=== PATIENT | female | born 1995 ===

== ENCOUNTER → 2017-02-16 | Outpatient (CLI) | payer OTHER ==
[~2017-02-16] MED LIST: ALEVE220 MG PO; AUGMENTIN875 MG PO; AVIANE-28 TABL1 EACH PO; ELAVIL25 MG PO; EXCEDRIN MIGRA1 EACH PO; FLORASTOR250 MG PO; GLUCAGON 1 MG PE1 MG SUB-Q; GLUCOSE4 GM PO; HUMALOG100 UNIT/1 SUB-Q; IMITREX25 MG PO; LEVONOR-ETH ES1 EACH PO; MOTRIN800 MG PO; NORCO 5-325 TA1 EACH PO; TYLENOL325 MG PO; ZYRTEC10 MG PO
== END | disposition disaster alternative care site (69) ==
LOC: GRAD 14:00
DX: Z32.01 Encounter for pregnancy test, result positive (principal); Z3A.15 15 weeks gestation of pregnancy

== ENCOUNTER → 2017-02-17 | Day surgery (SDC) | payer OTHER ==
[~2017-02-17] VITALS: Ht 165.1 cm; Wt 79.5 kg
--- NOTE | ~2017-02-17 | OR ---
PATIENT'S NAME: JAIRON LOCK [facility] AGE: 21 Y [address] ROOM: [place] [address] [place] [facility] [place]: 02/17/2017 OR/Procedure Report DISCHARGE DATE: FAMILY PHYSICIAN: Silvina Chowdhury ATTENDING PHYSICIAN: Alberto Morales SURGEON: Deedee Montes MD BLANKET BINDER: None. DATE OF PROCEDURE: 02/17/2017 PROCEDURE PERFORMED: Dilation and evacuation. PREOPERATIVE DIAGNOSES: 1. Intrauterine at 16 weeks and 2 days with demise. 2. Type 1 diabetes. POSTOPERATIVE DIAGNOSES: 1. Intrauterine at 16 weeks and 2 days with demise. 2. Type 1 diabetes. 3. IV antibiotics with doxycycline 100 mg IV and 200 mg p.o. postprocedure. ESTIMATED BLOOD LOSS: 200 mL. FINDINGS: Enlarged uterus, approximately 15 weeks' size. Appropriate amount of products of conception removed. Normal-appearing endometrial stripe in the uterus on ultrasound at the completion of procedure. Normal-appearing vagina and cervix. SPECIMENS: Products of conception. Specimen sent for genetics and for culture media. COMPLICATIONS: None. DISPOSITION: The patient is stable and sent to PACU. INDICATION FOR THE PROCEDURE: The patient is a 21-year-old, G1, P0, who had just recently found out she was . The patient had been having some vaginal bleeding and presented for evaluation via ultrasound and was found to have a 15-week demise. Biparietal diameter was putting fetus at 15 weeks and 2 days by measurements. The fetus was noted to have some signs of decay and also consistent with demise and low amniotic fluid. The patient was counseled regarding options and desired to proceed with a dilation and evacuation. Please see my previous H and P for discussion about consents. DESCRIPTION OF THE PROCEDURE: The patient was taken back to the operating room, where a time-out was performed to confirm correct patient and correct PATIENT'S NAME: JAIRON LOCK [facility] AGE: 21 Y [address] ROOM: [place] [id number] [place] [facility] [place]: 02/17/2017 OR/Procedure Report DISCHARGE DATE: FAMILY PHYSICIAN: Silvina Chowdhury ATTENDING PHYSICIAN: Alberto Morales procedure. She was prepped and draped in the usual sterile fashion and had been placed under general anesthesia without difficulty. She was in dorsal lithotomy position in [facility]. A weighted speculum was placed and Vniny was used to retract anteriorly. A single-tooth tenaculum was applied to the anterior lip of the cervix. Cervix was progressively dilated to accommodate the larger cervical dilator. The larger suction curette that could be passed easily through the cervix with the 8 mm curette. Suction was tested. The suction curette was advanced to the fundus and suction was applied. Multiple passes were made using gentle pressure. The packing forceps were then used to grasp parts. A sharp curettage was then performed. The patient was still noted to have placental tissue remaining. This process was repeated using all 3 instruments multiple times until a gritty texture to the endometrium was noted. Ultrasound was performed and there was a normal-appearing endometrial stripe and uterus at the completion of the procedure. All instruments were removed from the vagina and tenaculum sites appeared hemostatic. All sponge, and instrument counts were noted be correct x2 at the completion of the procedure and the patient was sent in stable condition to the PACU. MD HAN GALLARDO/patricia /[id number] d: 02/17/172110 t: 02/23/17 0942, OPERATIVE SUMMARY
--- NOTE | ~2017-02-17 | HP ---
PATIENT'S NAME: JAIRON LOCK [facility] AGE: 21 Y [address] ROOM: [place] [address] LOCATION: [facility] – [place] ADMIT DATE: 02/17/2017 History & Physical DISCHARGE DATE: FAMILY PHYSICIAN: Silvina Chowdhury ATTENDING PHYSICIAN: Alberto Morales DATE OF SERVICE: REASON FOR ADMISSION: Second trimester loss. HISTORY OF PRESENT ILLNESS: The patient is a 21-year-old, G1, P0, who was evaluated in the office today for a loss at 15 weeks' gestation. She had a previous ultrasound at [facility] that showed a fetus measuring 15 weeks and 2 days with associated abnormal morphology and low amniotic fluid levels consistent with a demise. The patient states that she had just recently found out she was . Denies any vaginal bleeding or cramping at this time. The patient does have a history significant for type 1 diabetes diagnosed at age 13 for which she wears an insulin pump. She believes her last A1c was somewhere in the range of 8s. She is not sure when her last thyroid was checked. She believed it was sometime in the last year. She was also continued on oral control pills as she was having bleeding and thought that she was having regular cycles. She otherwise denies any complaints or concerns today. PAST MEDICAL HISTORY: As stated above. Significant for type 1 diabetes diagnosed at age 13. PAST SURGICAL HISTORY: Previous tonsillectomy. OBSTETRICAL HISTORY: The patient is a G1, P0. She was taking oral contraceptives. SOCIAL HISTORY: Denies tobacco, alcohol, or drug use. ALLERGIES: DENIES ANY MEDICATION ALLERGIES. MEDICATIONS: Insulin pump. REVIEW OF SYSTEMS: Negative except as noted above. PATIENT'S NAME: JAIRON LOCK [facility] AGE: 21 Y [address] ROOM: [place] [address] LOCATION: [facility] – [place] ADMIT DATE: 02/17/2017 History & Physical DISCHARGE DATE: FAMILY PHYSICIAN: Silvina Chowdhury ATTENDING PHYSICIAN: Alberto Morales PHYSICAL EXAMINATION: GENERAL: She appears awake, alert, and oriented. She does not appear to be in any acute distress. Mood is appropriate. HEART: Regular rate and rhythm. LUNGS: Clear to auscultation bilaterally. ABDOMEN: Nontender with normal bowel sounds. : On vaginal exam, the patient has a closed cervix; 400 mcg of Cytotec was placed. EXTREMITIES: No cyanosis or edema. IMAGING DATA: On review of imaging, again as stated above, the patient had an ultrasound performed here at [facility] that showed a 15 weeks and 2 days fetus with no cardiac activity and signs of macerations consistent with the previous demise. There was noted to be low amniotic fluid levels and labs have not been drawn at this point. ASSESSMENT AND PLAN: This is a 21-year-old, G1, P0, with a demise at 15 weeks and 2 days by ultrasound's measurements. 1. The patient is aware of the options regarding management of this including medical management with induction with Cytotec versus surgical management with dilation and evacuation. She desires to proceed with surgery. As stated above, 400 mcg of Cytotec was placed to help facilitate cervical dilation. She is aware of the risks and benefits of the procedure to include, but not limited to, risk of bleeding, risk associated with anesthesia, risk of thromboembolism, risk of uterine perforation, risk of injury to bowel and bladder. She is aware of these risks and desires to proceed. 2. Discussed with the patient and her significant other. I would recommend repeat testing for her A1c and TSH today. She is at higher risk for miscarriage and anomalies due to her underlying type 1 diabetes based on her stated recent A1c. We also discussed antiphospholipid antibody syndrome testing as she has had a loss greater than 10 weeks. I would recommend doing this when she is no longer and can be done as part of followup in the office. The patient also was considering genetic testing. Reviewed with her that I would recommend pathological assessment and autopsy of the parts that are removed from the procedure. She is aware of this and desires to do so. 3. Type 1 diabetes. The patient will be placed on an insulin drip per protocol. PATIENT'S NAME: JAIRON LOCK [facility] AGE: 21 Y [address] ROOM: [place], [place] [address] LOCATION: [facility] [place] ADMIT DATE: 02/17/2017 History & Physical DISCHARGE DATE: FAMILY PHYSICIAN: Silvina Chowdhury ATTENDING PHYSICIAN: Alberto Morales PAVITHRA POLLOCK MD GT/modl /[id number] D: [id number] T: [id number] HISTORY & PHYSICAL
[2017-02-17 12:05] LABS: BASOPHIL % 0.3 %; EOSINOPHIL % 0.4 %; HEMATOCRIT 40.3 % (33.0-46.0); HEMOGLOBIN 13.8 g/dL (11.0-15.0); IMMATURE GRANULOCYTE % 0.4 %; LYMPHOCYTE # 1.3 K/uL (0.8-4.0); LYMPHOCYTE % 18.7 %; MCHC 34.2 gm/dL (32.0-36.5); MCV 84.7 fl (83.0-98.0); MONOCYTE # 0.4 K/uL (0.0-1.0); MONOCYTE % 6.2 %; MPV 10.1 fl (9.4-12.4); NEUTROPHIL # (ANC) 5.1 K/uL (1.8-7.8); NRBC % 0 /100WBC (0-0.00); PLATELET COUNT 234 K/uL (150-450); RBC 4.76 M/uL (3.50-5.00); RDW-CV 12.5 % (11.9-14.6)
== END | disposition disaster alternative care site (69) ==
LOC: GOBM 10:04 → GOBS 10:51 → GSDC 10:51 → EDSTATUS 11:15
PROVIDERS: Obstetrics & Gynecology
PROC: 10D17ZZ Extraction of Products of Conception, Retained, Via Natural or Artificial Opening (ICD-10-PCS; principal; 2017-02-17)
DX: O02.1 Missed abortion (principal); E10.9 Type 1 diabetes mellitus without complications; Z98.890 Other specified postprocedural states
CPT/HCPCS: J2001; J2210; J2250; J2550; J2765; J3010; J7030; J7060; J7120